=== PATIENT | male | born 1970 | race Caucasian/White ===

== ENCOUNTER 2024-05-04 16:02 | Emergency (ER) | payer SELFPAY ==
[~2024-05-04] VITALS: Ht 182.9 cm; Wt 78.0 kg
== END 2024-05-04 18:47 | disposition home or self-care (01) ==
LOC: ER 16:02
DX: S09.90XA Unspecified injury of head, initial encounter (principal); W19.XXXA Unspecified fall, initial encounter
CPT/HCPCS: 70450; 99283-25